=== PATIENT | female | born 1980 | race Caucasian/White ===

== ENCOUNTER 2017-04-05 17:09 | Inpatient (IN) | payer BC ==
[~2017-04-05] VITALS: Ht 165.1 cm; Wt 64.3 kg
[2017-04-05 17:39] LABS: BASOPHILS 0.1 % (0-2); EOSINOPHILS 0.3 % (0-7); HEMATOCRIT 45.5 % (36.0-48.0); HEMOGLOBIN 15.7 g/dL (12-16); IMMATURE GRANULOCYTES 0.2 % (0-5); LYMPHOCYTES 12.4 % (15-50); MCH 31.8 pg (26.0-34.0); MCHC 34.5 g/dL (31.0-37.0); MCV 92.3 fL (80.0-100.0); MEAN PLATELET VOLUME 10.5 fL (7.4-10.4); MONOCYTES 4.6 % (2-11); NEUTROPHILS 82.4 % (40-80); PLATELET COUNT 191 10x3/uL (130-400); RBC 4.93 10x6/uL (4.00-5.40); RDW 12.8 % (11.5-14.5); WBC 8.8 10x3/uL (4.8-10.8)
[2017-04-05 18:00] LABS: ALKALINE PHOSPHATASE 47 U/L (46-116); ALT (SGPT) 23 U/L (10-68); BILIRUBIN - TOTAL 0.44 mg/dL (0.2-1.3); CALC OSMOLALITY 279 mosm/kg (275-300); CALCIUM 9.1 mg/dL (8.5-10.1); CARBON DIOXIDE 26.6 mmol/L (21.0-32.0); CHLORIDE - SERUM 104 mmol/L (98-107); CREATININE - SERUM 0.8 mg/dL (0.6-1.3); GLUCOSE 128 mg/dL (74-106); POTASSIUM - SERUM 3.7 mmol/L (3.5-5.1); PROTEIN - SERUM 7.7 g/dL (6.4-8.2); SODIUM 139 mmol/L (136-145); UREA NITROGEN 12 mg/dL (7-18); eGFR NON AFRICAN AMERICAN 86 mL/min (90-120)
[2017-04-05 18:11] LABS: CKMB 0.5 U/L (0.0-3.6); CREATINE KINASE 105 UL (21-215); TROPONIN-I < 0.017 ng/mL (0.000-0.060)
[2017-04-05 18:23] LABS: APPEARANCE HAZY (CLEAR); BILIRUBIN NEGATIVE (NEGATIVE); COLOR YELLOW (YELLOW); GLUCOSE NEGATIVE (NEGATIVE); KETONE SMALL mg/dL (NEGATIVE); NITRITE NEGATIVE (NEGATIVE); PROTEIN NEGATIVE (NEGATIVE); SPECIFIC GRAVITY 1.005 (1.005-1.020); UROBILINOGEN NORMAL (NORMAL)
[2017-04-05 18:25] LABS: AMORPHOUS SEDIMENT >1+ /lpf (NONE SEEN); BACTERIA FEW /hpf (NONE SEEN); RED CELLS - URINE 0-5 /hpf (0-5)
[2017-04-05 18:29] LABS: UDS - AMPHET NEGATIVE QUAL (NEGATIVE); UDS - BARB NEGATIVE QUAL (NEGATIVE); UDS - BENZO NEGATIVE QUAL (NEGATIVE); UDS - COCAINE NEGATIVE QUAL (NEGATIVE); UDS - OPIATE NEGATIVE QUAL (NEGATIVE); UDS - PCP NEGATIVE QUAL (NEGATIVE); UDS - THC NEGATIVE QUAL (NEGATIVE)
[2017-04-05 19:10] LABS: CREATINE KINASE 110 UL (21-215)
[2017-04-05 19:15] LABS: TROPONIN-I < 0.017 ng/mL (0.000-0.060)
--- NOTE | 2017-04-05 19:20 | NUR ---
REPORT RECEIVED FROM QI RODRIGEZ.
--- NOTE | 2017-04-05 20:00 | NUR ---
ARRIVED TO FLOOR VIA STRETCHER, ORIENTED TO UNIT. ACCOMPANIED BY HOSPITAL STAFF. PLACED ON TELEMETRY. RIGHT AC INFUSING CARDIZEM @ 5. CALL LIGHT IN REACH. SEE NURSE ASSESSMENT. WILL CONTINUE TO MONITOR.
[2017-04-05] MEDS ORDERED: ULTRAM50 MG PO (20:22)
[2017-04-05] MEDS ORDERED: PHENERGAN25 M1 PO (20:23)
[2017-04-05 21:43] VITALS: BP 103/55
[2017-04-05 22:50] VITALS: Ht 165.1 cm; Wt 64.3 kg
[2017-04-06 01:21] VITALS: BP 90/46
[2017-04-06 01:29] LABS: CKMB 0.6 U/L (0.0-3.6); CREATINE KINASE 158 UL (21-215); TROPONIN-I < 0.017 ng/mL (0.000-0.060)
[2017-04-06 05:10] VITALS: BP 78/42; BP 96/56
[2017-04-06 06:31] LABS: BASOPHILS 0.2 % (0-2); EOSINOPHILS 2.1 % (0-7); HEMATOCRIT 40.7 % (36.0-48.0); HEMOGLOBIN 13.9 g/dL (12-16); IMMATURE GRANULOCYTES 0.2 % (0-5); LYMPHOCYTES 38.3 % (15-50); MCH 31.5 pg (26.0-34.0); MCHC 34.2 g/dL (31.0-37.0); MCV 92.3 fL (80.0-100.0); MEAN PLATELET VOLUME 10.2 fL (7.4-10.4); MONOCYTES 11.6 % (2-11); NEUTROPHILS 47.6 % (40-80); PLATELET COUNT 191 10x3/uL (130-400); RBC 4.41 10x6/uL (4.00-5.40)
[2017-04-06 06:44] LABS: WBC 6.1 10x3/uL (4.8-10.8)
[2017-04-06 07:20] LABS: CALC OSMOLALITY 279 mosm/kg (275-300); CALCIUM 8.4 mg/dL (8.5-10.1); CARBON DIOXIDE 26.2 mmol/L (21.0-32.0); CHLORIDE - SERUM 108 mmol/L (98-107); CKMB 0.3 U/L (0.0-3.6); CREATINE KINASE 150 UL (21-215); CREATININE - SERUM 0.7 mg/dL (0.6-1.3); GLUCOSE 85 mg/dL (74-106); MAGNESIUM - SERUM 2.1 mg/dL (1.8-2.4); POTASSIUM - SERUM 3.7 mmol/L (3.5-5.1); SODIUM 142 mmol/L (136-145); TROPONIN-I < 0.017 ng/mL (0.000-0.060); eGFR NON AFRICAN AMERICAN > 90 mL/min (90-120)
--- NOTE | 2017-04-06 07:30 | NUR ---
RECEIVED PT IN BED EYES CLOSED RESP UNLABOREDNAD NOTED
[2017-04-06 07:32] LABS: UREA NITROGEN 6 mg/dL (7-18)
[2017-04-06 08:00] VITALS: BP 94/41
[2017-04-06] MEDS ORDERED: BETAPACE 80 MG80 MG PO (13:08)
[2017-04-06] MEDS ORDERED: XARELTO20 MG PO (13:09)
--- NOTE | 2017-04-06 14:50 | NUR ---
RECEIVED PT FROM CVICU VIA W/C IN STABLE CONDITION VIA W/C AAOX4 RESP UNLABORED GENERALIZED WEAKNESS NOTED TELEMETRY APPLIED CAF RATE 80 DENIES ANY NEEDS OR DISCOMFORT AT THIS TIME
--- NOTE | 2017-04-06 15:15 | NUR ---
REVIEWED DISCHARGE INSTRUCTIONS WITH PT STATES UNDERSTANDING COPY GIVEN SALINE LOCK DCD TO RAC WITH IV CATHETER INTACT SITE FREE OF REDNESS OR EDEMA PT DISCHARGED HOME LEFT UNIT IN STABLE CONDITION VIA W/C WITH ALL PERSONAL BELONGINGS
--- NOTE | 2017-04-09 09:02 | CN ---
PATIENT NAME:DOREEN HERBERT MEDICAL RECORD: [id number] : 82 LOCATION:D. D.2120 ADMIT DATE: 04/05/17 ACCOUNT: [id number] CONSULTING PHYSICIAN: SYBIL DUNBAR MD REFERRING PHYSICIAN: CORNELL VASQUEZ MD DATE OF CONSULTATION: 04/06/2017 Cardiology Consult DIAGNOSES: Paroxysmal atrial fibrillation. HISTORY OF PRESENT ILLNESS: Ms. Herbert presents with nausea, vomiting, and atrial fibrillation. She had a similar episode approximately 1 year ago where she presented to [facility], this was as well started with nausea and vomiting. She then went into atrial fibrillation. She stayed in the hospital for 3 or 4 days, her heart spontaneously converted back to sinus rhythm. She was placed on Cardizem, however, this was dropped at followup. She was told she no longer needed that, the Cardizem was discontinued due to low blood pressure. She cannot feel that she is in atrial fibrillation. At this time, she does have baseline low blood pressure with systolic blood pressure in the 90 range. Her heart rate is now controlled on a Cardizem drip in the 60s, but she still remains in atrial fibrillation. PHYSICAL EXAMINATION: GENERAL APPEARANCE: Well-nourished, well-developed, appears stated age. Level of distress, comfortable. PSYCHIATRIC: Mental status, alert, normal affect. Orientation, oriented to time, place and person. EYES: Lids and conjunctiva, noninjected. No discharge, no pallor. ENT: Lips, teeth, gums, normal dentition. Oropharynx, no cyanosis, no pallor. NECK: Carotid arteries, bilateral normal upstroke, no bruits, no thrills. JUGULAR VEINS: No jugular venous pressure or distention. CERVICAL LYMPH NODES: Nontender, nonenlarged. THYROID: Not enlarged. Nontender. No nodules. LUNGS: Respiratory effort, unlabored. CHEST: Normal curvature. No thoracic deformity. No chest wall tenderness. Percussion, resonant. Auscultation, clear. No wheezes, no rales, no rhonchi. CARDIOVASCULAR: Precordial exam, nondisplaced. No heaves or pericardial thrills. Rate and rhythm, regular. Heart sounds, normal S1, normal S2. No S3, no gallop, no rub. Systolic murmur, not heard. Diastolic murmur, not heard. EXTREMITIES: No cyanosis, no edema. Peripheral pulses, full and equal in all extremities, except as noted. No bruits appreciated. ABDOMEN: Soft, nondistended. Normal aorta. No bruit. Nontender. No masses. Liver, nontender, no hepatomegaly. Spleen, nontender, no splenomegaly. MUSCULOSKELETAL: No joint tenderness. No joint swelling. No erythema. NEUROLOGICAL: Normal gait, normal strength, normal tone. SKIN: Warm and dry. OVERALL IMPRESSION: At this time, we will place her on sotalol 80 mg b.i.d. Discontinue the Cardizem, also place her on Xarelto. She wants to go home. We will treat this as an outpatient. We will follow up next week with an echocardiogram and see if she spontaneously converts to sinus rhythm, most likely she will. TRANSINT:[id number] Voice Confirmation ID: [id number] DOCUMENT ID: [id number] CONSULT REPORT [id number] DOREEN HERBERT JEFFREY MD at 0902 CC: [id number] DICTATION DATE: 04/06/17 1051 TUBE KNITTER: 04/06/17 1126 DIS IN 04/06/17 [facility] [address] [place] [address]
== END 2017-04-06 15:15 | disposition home or self-care (01) | DRG 310 ==
LOC: D.ER 17:09 → D.M2 18:53
PROVIDERS: Family Medicine; ADMIT Family Medicine Adult Medicine
DX: I48.0 Paroxysmal atrial fibrillation (principal); Z79.01 Long term (current) use of anticoagulants; R51 Headache

== ENCOUNTER 2020-09-17 19:51 | Inpatient (IN) | payer BC ==
[~2020-09-17] VITALS: Ht 165.1 cm; Wt 68.2 kg
[~2020-09-17 19:51] MED LIST: BETAPACE 80 MG80 MG PO; PHENERGAN25 M1 PO; ULTRAM50 MG PO; XARELTO20 MG PO
[2020-09-17 20:28] LABS: CALC OSMOLALITY 276 mosm/kg (275-300); CALCIUM 9.3 mg/dL (8.5-10.1); CARBON DIOXIDE 28.4 mmol/L (21.0-32.0); CHLORIDE - SERUM 102 mmol/L (98-107); CREATININE - SERUM 0.7 mg/dL (0.6-1.3); GLUCOSE 115 mg/dL (74-106); POTASSIUM - SERUM 4.1 mmol/L (3.5-5.1); SODIUM 139 mmol/L (136-145); UREA NITROGEN 7 mg/dL (7-18); eGFR NON AFRICAN AMERICAN > 90 mL/min (90-120)
[2020-09-17 20:42] LABS: ALBUMIN 3.8 g/dL (3.4-5.0); ALKALINE PHOSPHATASE 43 U/L (30-120); ALT (SGPT) 24 U/L (10-68); BILIRUBIN - TOTAL 0.37 mg/dL (0.2-1.3); PROTEIN - SERUM 7.3 g/dL (6.4-8.2); THYROID STIMULATING HORMONE 0.74 uIU/mL (0.36-3.74); TROPONIN-I < 0.017 ng/mL (0.000-0.060)
[2020-09-17 20:47] VITALS: BP 112/59
[2020-09-17 21:13] LABS: BASOPHILS 0.3 % (0-2); EOSINOPHILS 0.4 % (0-7); HEMATOCRIT 42.3 % (36.0-48.0); HEMOGLOBIN 14.5 g/dL (12-16); IMMATURE GRANULOCYTES 0.1 % (0-5); LYMPHOCYTE ABS# 1.59 10x3/uL (1.18-3.74); LYMPHOCYTES 22.6 % (15-50); MCH 30.6 pg (26.0-34.0); MCHC 34.3 g/dL (31.0-37.0); MCV 89.2 fL (80.0-100.0); MONOCYTES 6.3 % (2-11); NEUTROPHIL ABS# 4.95 10x3/uL (1.56-6.13); NEUTROPHILS 70.3 % (40-80); RBC 4.74 10x6/uL (4.00-5.40); RDW 13.1 % (11.5-14.5)
[2020-09-17 21:32] LABS: PLATELET COUNT 263 10x3/uL (130-400)
[2020-09-17 22:28] LABS: UDS - AMPHET NEGATIVE QUAL (NEGATIVE); UDS - BARB NEGATIVE QUAL (NEGATIVE); UDS - BENZO NEGATIVE QUAL (NEGATIVE); UDS - COCAINE NEGATIVE QUAL (NEGATIVE); UDS - OPIATE NEGATIVE QUAL (NEGATIVE); UDS - PCP NEGATIVE QUAL (NEGATIVE); UDS - THC NEGATIVE QUAL (NEGATIVE)
[2020-09-17 22:30] LABS: BILIRUBIN NEGATIVE (NEGATIVE); KETONE SMALL mg/dL (NEGATIVE); NITRITE NEGATIVE (NEGATIVE); UROBILINOGEN NORMAL mg/dL (< 2)
[2020-09-17 22:31] LABS: BACTERIA FEW HPF (NONE SEEN); HCG URINE NEGATIVE (NEGATIVE); WHITE CELLS - URINE OCC HPF (0-4)
--- NOTE | 2020-09-17 22:47 | NUR ---
REPORT RECIEVED FROM ER.
[2020-09-17 23:50] VITALS: Ht 165.1 cm; Wt 68.2 kg
[2020-09-18 00:24] VITALS: BP 110/60
--- NOTE | 2020-09-18 00:35 | NUR ---
MONITORS REPORTS HR NOW DIPPING INTO THE 50'S CAF. PT DID RECIEVE IV CARDIZEM AND PO CARDIZEM IN ER, PLUS THE DRIP THAT IS INFUSING. DECREASING CARDIZEM DRIP TO 2MG/HR WITH MONITORS TO NOTIFY IF PT RATE CONTINUES TO REDUCE.
--- NOTE | 2020-09-18 01:48 | NUR ---
PT SEEN BY DOMINICK ZULETA APN. DOMINICK ASSESSED PERINEUM FOR REPORTED CELLULITIS PER ER.
--- NOTE | 2020-09-18 02:58 | NUR ---
PT WITH NAUSEA/VOMITTING. ZOFRAN 4MG SIVP GIVEN. CARDIZEM DRIP NOW OFF DUE TO PT DIPPING INTO THE 40'S PER TELEMETRY. AFTER BEING OFF DRIP FOR 1 HOUR, THEN CAF 60'S.
[2020-09-18 04:52] VITALS: BP 96/50
[2020-09-18 06:06] LABS: APTT 27.8 SECONDS (22.8-39.4); INR 1.13 (0.85-1.17); PROTIME 13.4 SECONDS (11.6-15.0)
[2020-09-18 06:07] LABS: D-DIMER-QUANTITATIVE 0.37 ug/mLFEU (0.20-0.54)
[2020-09-18 06:09] LABS: BASOPHILS 0.3 % (0-2); EOSINOPHILS 0.7 % (0-7); HEMATOCRIT 41.2 % (36.0-48.0); HEMOGLOBIN 13.9 g/dL (12-16); IMMATURE GRANULOCYTES 0.1 % (0-5); LYMPHOCYTE ABS# 1.18 10x3/uL (1.18-3.74); LYMPHOCYTES 17.6 % (15-50); MCH 30.4 pg (26.0-34.0); MCHC 33.7 g/dL (31.0-37.0); MCV 90.2 fL (80.0-100.0); MEAN PLATELET VOLUME 10.8 fL (7.4-10.4); MONOCYTES 7.7 % (2-11); NEUTROPHIL ABS# 4.93 10x3/uL (1.56-6.13); NEUTROPHILS 73.6 % (40-80); PLATELET COUNT 242 10x3/uL (130-400); RBC 4.57 10x6/uL (4.00-5.40); RDW 13.4 % (11.5-14.5); WBC 6.7 10x3/uL (4.8-10.8)
[2020-09-18 06:31] LABS: ALBUMIN 3.4 g/dL (3.4-5.0); ALKALINE PHOSPHATASE 38 U/L (30-120); BILIRUBIN - TOTAL 0.46 mg/dL (0.2-1.3); CALC OSMOLALITY 277 mosm/kg (275-300); CALCIUM 8.3 mg/dL (8.5-10.1); CARBON DIOXIDE 26.6 mmol/L (21.0-32.0); CHLORIDE - SERUM 106 mmol/L (98-107); CREATININE - SERUM 0.7 mg/dL (0.6-1.3); GLUCOSE 121 mg/dL (74-106); MAGNESIUM - SERUM 2.1 mg/dL (1.8-2.4); PROTEIN - SERUM 6.6 g/dL (6.4-8.2); SODIUM 140 mmol/L (136-145); UREA NITROGEN 7 mg/dL (7-18); eGFR NON AFRICAN AMERICAN > 90 mL/min (90-120)
[2020-09-18 06:39] LABS: ALT (SGPT) 16 U/L (10-68); POTASSIUM - SERUM 3.4 mmol/L (3.5-5.1)
--- NOTE | 2020-09-18 07:00 | NUR ---
RECEIVED REPORT. ASSUMED CARE OF PATIENT. CALL LIGHT WITHIN REACH. PATIENT RESTING WITH EYES CLOSED, EASILY AROUSED. WHITE BOARD UPDATED, BEDSIDE SHIFT REPORT COMPLETED. NO DISTRESS.
--- NOTE | 2020-09-18 07:30 | NUR ---
CARDIZEM GTT TURNED BACK ON AT THIS TIME, HR 90-100, CARDIZEM INFUSING AT 5 PER NOC RN
[2020-09-18 07:47] VITALS: BP 83/39
[2020-09-18 11:20] VITALS: BP 97/42
--- NOTE | 2020-09-18 11:33 | NUR ---
NOTIFIED THAT PATIENT HAS CONVERTED TO SINUS RHYTHM AT THIS TIME.
[2020-09-18] MEDS ORDERED: PROPAFENONE HC225 MG PO (13:26)
[2020-09-18] MEDS ORDERED: CEPHALEXIN500 M1 PO (13:26)
--- NOTE | 2020-09-18 13:35 | NUR ---
RECEIVED OKAY FROM CARDIOLOGY FOR PATIENT TO DISCHARGE TO HOME. PRIMARY NOTIFIED AND ORDERS RECIEVED.
--- NOTE | 2020-09-18 13:47 | NUR ---
TELEMETRY REMOVED 20 GAUGE IV REMOVED FROM RIGHT AC, CATHETER TIP INTACT, NO BLEEDING FROM SITE AFTER PRESSURE HELD X 2 MINUTES, 2X2 APPLIED AND SECURED WITH BANDAID. DISCHARGE INSTRUCTIONS PROVIDED. PATIENT VERBALIZED UNDERSTANDING OF ALL INSTURCTIONS PROVIDED. PATIENT AWAITING ON HER BOYFRIEND TO PICK HER UP. HIM ANALYST RETURNED TO ICU AT THIS TIME BY LESLYE LAFLEUR.
--- NOTE | 2020-09-18 14:19 | NUR ---
PATIENT LEFT UNIT WITHOUT TELLING ANYONE HER RIDE WAS HERE FOR HER. ALL PERSONAL BELONGINGS ARE GONE FROM PATIENTS ROOM.
--- NOTE | 2020-09-20 08:00 | CN ---
PATIENT NAME:DOREEN RENEE MEDICAL RECORD: [id number] : 82 LOCATION:D.M2 D.2117 ADMIT DATE: 09/17/20 ACCOUNT: [id number] CONSULTING PHYSICIAN: FREIDA GUTIERREZ MD REFERRING PHYSICIAN: VIANNEY NARVAEZ MD DATE OF CONSULTATION: 09/18/2020 HISTORY OF PRESENT ILLNESS: A 40-year-old female with a history of atrial fibrillation on no chronic medications, admitted with recurrent atrial fibrillation. Initially rate controlled with the Cardizem drip; however, these became elevated again while in the ER and has presented for rate control and further evaluation. Currently, she remains in atrial fibrillation, minimally symptomatic from this standpoint. We are asked to see her concerning her cardiovascular status. PAST MEDICAL HISTORY: 1. Includes a history of migraine headaches. 2. Atrial fibrillation as described above. MEDICATIONS: None chronically. ALLERGIES: None known. SOCIAL HISTORY: Nonsmoker, nondrinker. Works full-time. Easily takes care of all her ADLs. No set exercise program. REVIEW OF SYSTEMS: The patient reports easy bruising but reports no swollen glands. The patient reports no fever, no night sweats, no significant weight gain, no significant weight loss. No significant exercise tolerance. The patient reports no dry eyes, no irritation, no vision change. Patient reports no difficulty hearing and no ear pain. Patient reports no frequent nose bleeds or nose and sinus problems. Patient reports on arm pain on exertion. No shortness of breath while lying down. No history of heart murmur. Patient reports no cough, no wheezing or coughing up blood. Patient reports no abdominal pain, no vomiting. Normal appetite. No diarrhea and not vomiting blood. No nausea and no constipation. Patient reports no incontinence. No difficulty urinating. No hematuria. No increased frequency. Patient reports no muscle aches. No weakness, no arthralgias, no back pain. No swelling of the extremities. Patient reports no abnormal mole, no jaundice, no rashes. Reports no loss of consciousness. No weakness and no numbness. No seizures, dizziness, or headaches. The patient reports no depression, no sleep disturbance, feeling safe in a relationship and no alcohol abuse. Patient reports on fatigue. Reports no runny nose or sinus pressure. No itching, no hives, and no frequent sneezing. PHYSICAL EXAMINATION: GENERAL: Pleasant female in no acute distress, appears mildly anxious. VITAL SIGNS: Blood pressure 83/39, pulse 69 and irregular. HEENT: Normocephalic, atraumatic. NECK: No JVD or bruit. HEART: Irregular, rate is controlled. A II/ systolic ejection murmur. LUNGS: Good air excursion. ABDOMEN: Soft and nontender. EXTREMITIES: Pulses 2+. No edema. NEUROLOGIC: Grossly intact. CONSULT REPORT [id number] [facility] DATA: EKG shows atrial fibrillation. IMPRESSION: Atrial fibrillation, each episode previously has been instigated by nausea and migraine headache. This may be a vagal or a mediated atrial fibrillation. EDWAR score less than 2, so at this point. We will start a class I propafenone to hopefully restore normal sinus rhythm. If rhythm is controlled, perhaps a ixzi-xk-[id number]-pocket therapy at some point given the rarity of breakthroughs, we would not consider ablation at this point. TRANSINT:[id number] Voice Confirmation ID: [id number] DOCUMENT ID: [id number] FREIDA GUTIERREZ MD at 0800 CC: [id number] DICTATION DATE: 09/18/20934 MEDICAL ASSISTANT OB GYN: 09/18/20 1031 DIS IN 09/18/20 [facility] [address] [place] [address]
--- NOTE | 2020-09-20 14:56 | MORECARE ---
CASE MANAGEMENT DISCHARGE SUMMARY PATIENT: DOREEN RENEE UNIT: [id number] ADM DATE: 09/17/20 AGE: 40 : 81 SEX: F ROOM/BED: D.0247 AUTHOR: CAMILLE GALEAS PHYSICIAN: REFERRING PHYSICIAN: VIANNEY NARVAEZ MD DATE OF SERVICE: 09/20/20 Case Management Discharge Planning Summary COMMENTS ENTERED DATE: 09/18/20 15:30 CT COMMENT TYPE: Discharge Planning REVIEWER: Harman Foss CM met with patient to complete DC plan and to evaluate needs. Patient lives alone with strong support and names her friend, Nikolai Pena, as her person to notify. Patient stated that her home is safe and has electricity and running water. Patient stated that she has no problems paying for medications and she fills her medications at [facility] on [address]. At discharge, the patient plans to return home and feels this is a safe discharge. CM discussed availability of home health, rehab services, and medical equipment. Patient declined HHS, SNF, IPR, and DME. Patient stated that she does not need any mobilization equipment. Patient voiced no other needs at this time and is satisfied with DC plan. CM will continue to follow and will assist as needed with dc plans/needs. DCP REVIEW SUMMARY ANTICIPATED D/C DATE: 09/18/2020 EXPECTED LOS : 1 CASE STATUS: DCP Initiated INITIAL REVIEW: 09/17/2020 INITIAL REVIEWER: Harman Foss FINAL DISCHARGE DISPOSITION: : FINAL REVIEWER: FINAL REVIEW DATE: DCP Focus Questions & Answers DCP Evaluation QUESTION: ANSWER Patient and/or caregiver agree upon recommended discharge plan? : Yes Family / Caregiver's ability to cope with chronic illness: : a. Adequate (ability to meet patient's medical needs, ensures patient attends medical appts.) Patient's current cognitive status: : *Oriented to person, place, situation, time and present Patient's ability to cope with chronic illness : d. No chronic illness Patient gives permission to discuss discharge plans with: (name, relationship and number) : friendNikolai, Does the patient have the ability to pay for or attain post discharge needs / services? : Yes Functional screen assessment: : Basic needs can adequately be met by self Family / Caregiver's ability to cope with chronic illness: : a. Adequate (ability to meet patient's medical needs, ensures patient attends medical appts.) Physical Status: : Independent with ADL's Equipment needed for post hospitalization: : None Is there a likelihood that the patient will require additional services to return to the preadmission environment? : No Living Arrangements: : Home Alone with Support Patient with capacity for self-care or can be cared for in same environment as prior to hospitalization? : Yes Baseline cognitive status: : *Oriented to person, place, situation, time and present Physical environment modification needed / anticipated for discharge: : No Medication Management: : Patient states can read and understand medication labels Medication Management: : Patient states can afford medications Pharmacy name(s): : [facility] on [address] Does Patient have transportation to get home and to follow-up medical appointments when discharged from the hospital? : Yes Would patient like to participate in any Care Coordination programs (if applicable): : Not applicable Does the patient have electricity at home? : Yes Does the patient have running water in their house? : Yes Equipment in use: : None Mental health screen: : No mental health history DCP Re-evaluation QUESTION: ANSWER Would patient like to participate in any Care Coordination programs (if applicable): : Not applicable PATIENT: DOREEN RENEE ENCOUNTER: [id number] MEDICAL RECORD#: [id number] ADMISSION DATE: 09/17/2020 DISCHARGE DATE: 09/18/2020 ATTENDING MD: BRICE NARVAEZ : AGE: 40 MARITAL STATUS: S DC PLAN ID: [id number] FACILITY: [facility] PRINTED ON: 09/20/20 14:56 CT All edits/amendments must be made on the electronic document DICTATION DATE: 09/20/201455 STEEL POURER: ONIEL 09/20/20 145 RPT#: [id number] DC DATE:09/18/20 STATUS: DIS IN [facility] [address] [place] [address] END OF REPORT
== END 2020-09-18 14:21 | disposition home or self-care (01) | DRG 309 ==
LOC: D.ER 19:51 → D.M2 22:20
PROVIDERS: Student in an Organized Health Care Education/Training Program; ADMIT Family Medicine; ATTEND Family Medicine
DX: I48.20 Chronic atrial fibrillation, unspecified (principal); L03.315 Cellulitis of perineum; G43.909 Migraine, unspecified, not intractable, without status migrainosus; I95.9 Hypotension, unspecified